=== PATIENT | female | born 1960 | race Caucasian/White ===

== ENCOUNTER → 2018-12-17 | Outpatient (CLI) | payer MEDICAID ==
[~2018-12-17] MED LIST: ALPR1TAB2 PO; DEXL60CA3 PO; FENT1PAT62 TD; MAGN250T10 PO; OXYC5CAP19 PO; SUVO20TA PO; VITA400C73 PO
== END | disposition home or self-care (01) ==
LOC: RAH 15:47
PROVIDERS: ATTEND Family Medicine
DX: R51 Headache (principal); M54.2 Cervicalgia
CPT/HCPCS: 70551

== ENCOUNTER → 2018-12-24 | Outpatient (CLI) | payer MEDICAID | END | disposition home or self-care (01) | LOC: RAH 10:00 | PROVIDERS: ATTEND Family Medicine | DX: M47.812 Spondylosis without myelopathy or radiculopathy, cervical region (principal); M48.02 Spinal stenosis, cervical region | CPT/HCPCS: 72141 ==

== ENCOUNTER → 2019-01-08 | Outpatient (CLI) | payer MEDICAID | END | disposition home or self-care (01) | LOC: RAH 09:01 | PROVIDERS: ATTEND Internal Medicine Gastroenterology | DX: K44.9 Diaphragmatic hernia without obstruction or gangrene (principal) | CPT/HCPCS: 74240 ==

== ENCOUNTER 2019-10-22 15:19 | Emergency (ER) | payer MEDICAID | END 2019-10-22 16:34 | disposition home or self-care (01) | LOC: EDH 15:19 | DX: F41.9 Anxiety disorder, unspecified (principal); Z87.891 Personal history of nicotine dependence ==

== ENCOUNTER → 2020-09-19 | Outpatient (CLI) | payer MEDICAID | END | disposition home or self-care (01) | LOC: RAH 10:56 | PROVIDERS: ATTEND Internal Medicine Gastroenterology | DX: R14.0 Abdominal distension (gaseous) (principal); K21.9 Gastro-esophageal reflux disease without esophagitis | CPT/HCPCS: 78264; A9541 ==

== ENCOUNTER → 2020-12-18 | Outpatient (CLI) | payer MEDICAID | END | disposition home or self-care (01) | LOC: RAH 09:11 | PROVIDERS: ATTEND Internal Medicine Gastroenterology | DX: K44.9 Diaphragmatic hernia without obstruction or gangrene (principal); R13.10 Dysphagia, unspecified | CPT/HCPCS: 74220 ==

== ENCOUNTER → 2022-12-16 | Outpatient (CLI) | payer MEDICAID | END | disposition home or self-care (01) | LOC: RAH 09:15 | PROVIDERS: ATTEND Internal Medicine Gastroenterology | DX: K21.9 Gastro-esophageal reflux disease without esophagitis (principal); K44.9 Diaphragmatic hernia without obstruction or gangrene | CPT/HCPCS: 74240 ==

== ENCOUNTER → 2023-02-12 | Outpatient (CLI) | payer MEDICAID ==
[2023-02-12 14:44] LABS: BASOPHILS % (AUTO) 1.6 % (0.0-5.0); EOSINOPHILS % (AUTO) 11.9 % (0.0-8.0); HEMATOCRIT 35.1 % (36-48); LYMPHOCYTES % (AUTO) 29.3 % (21.0-51.0); MEAN CORPUSCULAR HEMOGLOBIN 31.5 pg (27.0-33.0); MEAN CORPUSCULAR HGB CONC 31.3 g/dL (32.0-36.0); MEAN CORPUSCULAR VOLUME 100.6 fL (79-99); MONOCYTES % (AUTO) 11.4 % (3.0-13.0); NEUTROPHILS % (AUTO) 45.5 % (40.0-77.0); PLATELET COUNT (AUTO) 219 K/uL (130-400); RED BLOOD CELL COUNT(AUTO) 3.49 MIL/uL (4.00-5.50); RED CELL DISTRIBUTION WIDTH 12.5 % (11.0-15.5); WHITE BLOOD COUNT (AUTO) 6.2 K/uL (4.8-10.8)
[2023-02-12 14:58] LABS: CREATININE 0.7 mg/dL (0.5-1.5); POTASSIUM 4.7 mmol/L (3.5-5.1)
== END | disposition home or self-care (01) ==
LOC: LAB 14:07
PROVIDERS: ATTEND Surgery
DX: K31.84 Gastroparesis (principal)
CPT/HCPCS: 36415; 80053; 85025

== ENCOUNTER → 2023-02-14 | Outpatient (CLI) | payer MEDICAID ==
[~2023-02-14] MED LIST changes: +IOHEXOL-350 75 ML VIAL IV ONE
== END | disposition home or self-care (01) ==
LOC: RAH 09:47
PROVIDERS: ATTEND Surgery
DX: K31.84 Gastroparesis (principal); R13.10 Dysphagia, unspecified; K44.9 Diaphragmatic hernia without obstruction or gangrene
CPT/HCPCS: 74177; Q9967

== ENCOUNTER → 2025-02-21 | Outpatient (CLI) | payer MEDICAID ==
[~2025-02-21] MED LIST changes: -IOHEXOL-350 75 ML VIAL IV ONE; -OXYC5CAP19 PO; +OXYC5CAP22 PO
--- NOTE | 2025-02-21 09:12 | HMCIMG ---
UPPER GI SERIES History: EPIGASTRIC PAIN Comparison: none Contrast: barium sulfate suspension, effervescent granules TECHNIQUE: EXAMINATION IS DONE UNDER FLUOROSCOPIC CONTROL, WITH FLUOROSCOPIC SPOTS OBTAINED. ALSO, OVERHEAD AP, LATERAL AND OBLIQUE VIEWS WERE OBTAINED. Exposure factors: Total fluoro time: 0.5 minutes FINDINGS: Under fluoroscopic evaluation, the patient's esophagus demonstrates normal course, contour and caliber. Normal motility is seen. There is a small hiatal hernia and there is gastroesophageal reflux to the mid esophageal level. The stomach, duodenal bulb, duodenal C-loop, and visualized proximal small bowel show no extrinsic compression, fixed filling defect, ulcerations or abnormalities in mucosal pattern. No tumor is identified. There is no gastric outlet obstruction. There is no extravasation. There is no evidence of malrotation. IMPRESSION: Small hiatal hernia. Gastroesophageal reflux to the mid esophageal level.
== END | disposition home or self-care (01) ==
LOC: RAH 07:27
PROVIDERS: ATTEND Internal Medicine Gastroenterology
DX: K21.9 Gastro-esophageal reflux disease without esophagitis (principal); K44.9 Diaphragmatic hernia without obstruction or gangrene; R10.13 Epigastric pain
CPT/HCPCS: 74240